=== PATIENT | male | born 1950 | race Caucasian/White ===

== ENCOUNTER 2017-10-11 10:59 | Emergency (ER) | payer MEDICARE ==
[~2017-10-11] VITALS: Ht 182.9 cm; Wt 45.0 kg
[2017-10-11 11:05] VITALS: BP 120/79; PULSE 91; RESP 16; TEMP 98; O2SAT 99
[2017-10-11] MEDS ORDERED: ZOLO100T PO (11:42)
[2017-10-11] MEDS ORDERED: VASO10TA8 PO (11:42)
[2017-10-11] MEDS ORDERED: BUPIVACAINE HCL PF 0.5% 10 ML VIAL INFIL ONE (12:00)
[2017-10-11] MEDS ORDERED: LIDOCAINE HCL 1% 20 ML VIAL INFIL ONE (12:00)
[2017-10-11] MEDS ORDERED: NORC5TAB PO (12:00)
[2017-10-11] MEDS ORDERED: TETANUS/DIPHTHERIA TOXOID ADULT 0.5 ML VIAL IM ONE (12:00)
[2017-10-11] MEDS ORDERED: IBUP1TAB7 PO (12:00)
[2017-10-11] MEDS ORDERED: BACT800T5 PO (12:00)
--- NOTE | 2017-10-11 12:01 | PD ---
HPI Chief Complaint: Laceration/Skin Injury Time Seen by Provider: 11:44 Travel History International Travel<30 days: No Contact w/Intl Traveler<30days: No Traveled to known affect area: No History of Present Illness HPI 67-year-old male presents to the emergency Department with complaint of a laceration to his right hand index finger from a power saw that occurred today. Denies anticoagulant therapy. Denies tetanus being up-to-date. Has applied pressure to control bleeding. Has not taken any medications to alleviate his symptoms. Rates pain 10. Describes as a constant throbbing. No known aggravating or relieving factors. Primary care provider is Dr. Garcia. No known allergies. History of hypertension. Has no other medical complaints. No other modifying factors or associated signs and symptoms. PFSH Past Medical History Depression: Yes Hypertension: Yes Tetanus Vaccination: > 5 Years Past Surgical History Appendectomy: Yes Social History Alcohol Use: No Tobacco Use: Yes Substance Use: No Allergies-Medications (Allergen,Severity, Reaction): Coded Allergies: No Known Allergies (Verified Allergy, Unknown, 10/11/17) Reported Meds & Prescriptions Reported Meds & Active Scripts Active Ibuprofen 800 Mg Tab 800 Mg PO Q6HR PRN [place] (Hydrocodone-Acetaminophen) 5 Mg-325 Mg Tab 1 Tab PO Q4H PRN Bactrim DS (Sulfamethoxazole-Trimethoprim) 800-160 Mg Tab 1 Tab PO BID 7 Days Reported Vasotec (Enalapril Maleate) 10 Mg Tab 10 Mg PO DAILY Zoloft (Sertraline HCl) 100 Mg Tab 100 Mg PO DAILY Review of Systems Except as stated in HPI: all other systems reviewed are Neg Physical Exam Narrative GENERAL: Well-nourished, well-developed male patient, in no acute distress SKIN: Warm and dry. Approximately 2.5 cm laceration to the distal, lateral aspect of the right hand second finger, involving the nail and nailbed; finger with full range of motion; good opposition; sensory intact; bleeding controlled. HEAD: Atraumatic. Normocephalic. EYES: Pupils equal and round. No scleral icterus. No injection or drainage. ENT: Mucosa pink and moist. Airway patent. NECK: Trachea midline. CARDIOVASCULAR: Regular rate. RESPIRATORY: No accessory muscle use. GASTROINTESTINAL: Flat. MUSCULOSKELETAL: No obvious deformities. No clubbing. No cyanosis. No edema. NEUROLOGICAL: Awake and alert. Oriented 3. No obvious cranial nerve deficits. Motor grossly within normal limits. Normal speech. PSYCHIATRIC: Appropriate mood and affect; insight and judgment normal. Data Data Last Documented VS Vital Signs Date Time Temp Pulse Resp B/P (MAP) Pulse Ox O2 Delivery O2 Flow Rate FiO2 10/11/17 11:05 98.0 91 16 120/79 (93) 99 Orders Orders Finger ([id number]) (10/11/17 ) Tetanus/Diphtheria Tox Adult (Tetanus/Di (10/11/17 12:00) Lidocaine 1% Inj (Xylocaine 1% Inj) (10/11/17 12:00) Bupivacaine Pf 0.5% Inj (Marcaine Pf 0.5 (10/11/17 12:00) Cefazolin Inj (Ancef Inj) (10/11/17 12:45) Iv Access Insert/Monitor (10/11/17 12:42) Wound Care (10/11/17 14:44) Splint Or Brace Apply/Monitor (10/11/17 14:44) Ed Discharge Order (10/11/17 14:44) MDM Medical Decision Making Medical Screen Exam Complete: Yes Emergency Medical Condition: Yes Medical Record Reviewed: Yes Differential Diagnosis Laceration, open fracture, partial amputation Narrative Course 67-year-old male with a laceration to the distal aspect of his right hand second finger involving the nailbed and nail. Tetanus updated in the ER. See my procedure note for laceration repair. Right hand second finger x-ray ordered. 1242: Right hand index finger concludes: Soft tissue defect at the tip of the second digit. There is likely a portion of the distal phalangeal tuft that is absent. No radiopaque foreign body is identified. Ancef 1 g ordered. Hand surgeon called. 1330: I spoke with and he agrees with my plan of care and the patient will follow-up in his office outpatient. Or with hand surgeon of choice. Bactrim, ibuprofen, [place] prescribed for home. Instructed patient to follow up with hand surgeon. Dr. Constantino's information was provided for follow-up. Dressing applied and finger splint provided. Instructed patient to follow up with primary care provider. Patient verbalizes understanding and agreement with treatment plan. Patient is medically cleared and stable for discharge. Discussed reasons to return to the emergency department. Patient agrees with treatment plan. The patients vital signs are stable and the patient is stable for outpatient follow-up and treatment. Patient discharged home, stable and in no acute distress. Procedures Procedure Narrative LACERATION LOCATION: Distal aspect of right index finger LENGTH: 2 and half centimeters NUMBER OF STITCHES/VENITA: 8 simple interrupted stitches REPAIR: The area of the laceration was prepped with Betadine and sterilely draped. The finger was anesthetized with 1% lidocaine and 0.5% bupivacaine. The wound was copiously irrigated and explored without evidence of foreign body , tendon injury or neurovascular injury. The wound was closed using 6-0 Prolene. This was a single layer repair. A sterile dressing was applied. The patient was advised to keep the dressing clean and dry. Patient tolerated the procedure well. Diagnosis Primary Impression: Partial traumatic metacarpophalangeal amputation of finger Qualified Codes: S68.129A - Partial traumatic metacarpophalangeal amputation of unspecified finger, initial encounter Referrals: Anam Constantino III, MD Hand Surgeon Primary Care Physician Patient Instructions: Acute Wound Care (DC), Care For Your Stitches (ED), Finger Laceration (ED), General Instructions Additional Instructions: Keep area clean and dry Limit right index finger activity to decrease risk of sutures coming undone Ibuprofen or Tylenol as directed and as needed for pain and inflammation Ice pack to area as needed to decrease pain Return to the emergency department, follow-up with primary care provider, or hand surgeon in 10-14 days for suture removal Follow up with primary care provider within 2-4 days Follow-up with hand surgeon with 2-3 days Return to the emergency department immediately with worsening of symptoms, particularly if reddened streaks up or down the affected extremity from the suture site, fever, numbness/tingling in the affected extremity, loss of sensation in the affected extremity, severe swelling of the affected Med/Other Pt SpecificInfo: Prescription(s) given Scripts Ibuprofen (Ibuprofen) 800 Mg Tab 800 MG PO Q6HR Y for PAIN, #30 TAB 0 Refills Prov: Ashley Ayers [employer]WARE [employer] 10/11/17 Hydrocodone-Acetaminophen ([place]) 5 Mg-325 Mg Tab 1 TAB PO Q4H Y for PAIN, #15 TAB 0 Refills Prov: Ashley Ayers ANGÉLICA 2/15/18 Sulfamethoxazole-Trimethoprim (Bactrim DS) 800-160 Mg Tab 1 TAB PO BID for Infection for 7 Days, #14 TAB 0 Refills Prov: Ashley Ayers 10/11/17 Disposition: 01 DISCHARGE HOME Condition: Stable Ashley Ayers Oct 11, 2017 12:01
--- NOTE | 2017-10-11 12:16 | RADRPT ---
EXAM DATE/TIME: 10/11/2017 12:03 [facility] COMPARISON: No previous studies available for comparison. INDICATIONS : Right 2nd digit laceration from power saw today. MEDICAL HISTORY : None. SURGICAL HISTORY : None. ENCOUNTER: Initial ACUITY: 1 day PAIN SCORE: 9/10 LOCATION: Right 2nd digit; hand. FINDINGS: 3 views of the right hand second digit demonstrate soft tissue defect at the tip of the second digit. There is likely absence of a small portion of the distal phalangeal tuft. There is no radiopaque for eign body. Remaining right hand structures demonstrate no abnormality. Otherwise, no acute fracture o r dislocation is seen. CONCLUSION: Soft tissue defect at the tip of the second digit. There is likely a portion of the distal phalangeal tuft that is absent. No radiopaque foreign body is identified. Tan Molina MD on October 11, 2017 at 12:11 Board Certified Radiologist. This report was verified electronically.
[2017-10-11 15:02] VITALS: BP 129/68
== END 2017-10-11 15:09 | disposition home or self-care (01) ==
LOC: NEPD 10:59
DX: S68.120A Partial traumatic metacarpophalangeal amputation of right index finger, initial encounter (principal); W29.8XXA Contact with other powered hand tools and household machinery, initial encounter; I10 Essential (primary) hypertension; F32.9 Major depressive disorder, single episode, unspecified; Z23 Encounter for immunization; Z72.0 Tobacco use
CPT/HCPCS: 12001; 73140; 90471; 90714; 96365; 99284; J0690